=== PATIENT | male | born 1940 | race Caucasian/White ===

== ENCOUNTER → 2023-12-25 15:29 | Outpatient (RCR) | payer MEDICARE, OTHER, SELFPAY | END | disposition home or self-care (01) | LOC: HO.OT 06-01 12:48 | PROVIDERS: PCP Internal Medicine; Visit Provider Physician Assistant | DX: M77.11 Lateral epicondylitis, right elbow (principal) | CPT/HCPCS: 29125; 97033; 97110; 97166; 97760 ==